=== PATIENT | female | born 1965 | race Caucasian/White ===

== ENCOUNTER → 2016-12-29 | Outpatient (CLI) | payer BC ==
[~2016-12-29] MED LIST: ASCO10007 PO; ASPI-557 PO; CALC-39 PO; LISI-625 PO; METO-275 PO; MULT-1243 PO; RIZA5TAB13 PO; SIMV40TA82 PO; [UNRECOGNIZED DRUG - CODE] PO
== END ==
LOC: WC.BC 16:08
DX: Z12.31 Encounter for screening mammogram for malignant neoplasm of breast (principal)
CPT/HCPCS: 77063; G0202